=== PATIENT | female | born 1965 | race Caucasian/White ===

== ENCOUNTER → 2020-11-04 17:02 | Outpatient (CLI) | payer OTHER, SELFPAY ==
--- NOTE | ~2020-11-04 | MM_ITS ---
EXAMINATION: MM screening [facility] BI w anu HISTORY: Screening mammogram TECHNIQUE: Craniocaudal and mediolateral oblique 3-D tomosynthesis images were obtained and synthetic 2-D images were generated. CAD analysis was submitted and interpreted. COMPARISON: 04/26/2019, 09/07/2018, 03/24/2018, 03/14/2018, 05/18/2017 BREAST PARENCHYMAL COMPOSITION: There are scattered areas of fibroglandular density. FINDINGS: Scattered benign-appearing calcifications are present. A stable mass in the outer left [address] is considered benign given the lack of interval change. There is no evidence of suspicious mass, c alcification, or architectural distortion to suggest malignancy in either breast. There has been no s uspicious interval change. IMPRESSION: 1. No mammographic evidence of malignancy. 2. Recommend routine screening mammography in one year. BI-RADS Category 2: Benign finding(s). Reviewed, dictated and finalized at location A. T CLERK
== END ==
PROVIDERS: PCP Family Medicine; Visit Provider Family Medicine
DX: Z12.31 Encounter for screening mammogram for malignant neoplasm of breast (principal)
CPT/HCPCS: 77063; 77067

== ENCOUNTER → 2023-02-26 16:19 | Outpatient (CLI) | payer OTHER, SELFPAY ==
--- NOTE | ~2023-02-26 | MM_ITS ---
EXAMINATION: MM screening [facility] BI w anu HISTORY: Screening mammogram TECHNIQUE: Craniocaudal and mediolateral oblique 3-D tomosynthesis images were obtained and synthetic 2-D images were generated. CAD analysis was submitted and interpreted. COMPARISON: 11/04/2020, 04/26/2019, 09/07/2018, 03/14/2018 BREAST PARENCHYMAL COMPOSITION: There are scattered areas of fibroglandular density. FINDINGS: We'll cysts are noted in the breasts. No suspicious mass, calcification, or architectural d istortion are identified in either breast to suggest malignancy. There has been no suspicious interva l change. IMPRESSION: 1. No mammographic evidence of malignancy. 2. Recommend routine screening mammography in one year. BI-RADS Category 2: Benign finding(s). Reviewed, dictated and finalized at location A.
== END ==
PROVIDERS: PCP Family Medicine; Visit Provider Student in an Organized Health Care Education/Training Program
DX: Z12.31 Encounter for screening mammogram for malignant neoplasm of breast (principal)
CPT/HCPCS: 77063; 77067

== ENCOUNTER 2023-06-21 05:54 | Day surgery (SDC) | payer OTHER, SELFPAY ==
[2023-06-03 13:54] VITALS: BMI 29.9
--- NOTE | 2023-06-21 06:55 | WPDANESEPPF ---
Anes - Initial Pre Proc Eval Procedure: Operation Date: 06/21/23 07:30 Proposed Procedures p Screening Colonoscopy - Naman Blackmon MD Date/Time: 06/21/23 06:55 Surgeon: Naman Blackmon MD Pre Op Diagnosis: History of Colon Polyps Patient Data Age: 58 Gender: F Height: 1.68 m Weight: 82.8 kg Allergies Allergy/AdvReac Type Severity Reaction Status Date / Time No Known Allergies Allergy Verified 06/21/23 06:52 Home Medications Medication Instructions Recorded Confirmed Type No Home Medications 06/03/23 06/21/23 History Patient hx anesthesia problems: none Family hx anesthesia problems: none Results Review: All pre-operative results and documents have been reviewed as part of the pre-operative evaluation. [facility] Past Medical History Medical History (Updated 01/22/23 @ 08:53 by Rhiannon Nelson NP) Abnormal blood creatinine level Anxiety Cyst of right breast Depression Diverticulitis Eczema Encounter to establish care Headache History of colon polyps Kidney stones Screening mammogram, encounter for Seasonal allergies Unspecified abnormal findings in urine Surgical History Surgical History H/O arthroscopic knee surgery left meniscus H/O colonoscopy (09/09/17) H/O right breast biopsy Benign H/O tubal ligation Family History Family History (Updated 01/21/23 @ 11:39 by BLANCA Lozano) Mother Coronary arteriosclerosis Diabetes mellitus Depression Anxiety Father Acute myocardial infarction Dementia Grandparent Breast cancer Maternal grandmother / paternal grandmother H/O ovarian cancer maternal grandmother/ Paternal grandmother Sibling Depression Anxiety Son Depression Anxiety Daughter Anxiety Depression Social History Social History (Updated 01/22/23 @ 08:06 by BLANCA Lozano) Smoking status: Former smoker Smoking end date: 11/01/16 Alcohol intake: current Alcohol use details: socially Substance use: never Substance use type: does not use Lack of Transportation: No Lack of Food: Never True Current Housing: I Have Housing Concerned About Future Housing: No Difficulty Paying Gas/Electric Bills: No Difficulty Paying for Meds: No Currently Unemployed: No Education: High School Diploma/GED Difficulty w/ Childcare or Family Care: No Living arrangements: with family Occupation/Education: occupation 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 Gender identity (if verbalized by the patient): Female Sexual Orientation (if Verbalized by the Patient): Straight or Heterosexual Spiritual care concerns: No Anes - Eval Final PreProcedure Day of Procedure 06/21/23 06:55 Patient weight: overweight Heart: regular rate and rhythm Lungs: clear to auscultation Airway: Mallampati scale class II Neurological: alert and oriented Last oral intake: >/= 8 hours ASA classification: II Emergent: no Anesthetic plan: proceed Anesthesia type and monitoring: general GIVS and standard monitoring Results Review: All pre-operative results and documents have been reviewed as part of the pre-operative evaluation. Informed Consent: The patient's anesthetic plan and its attendant risks and benefits were discussed with the patient/family/POA. Questions were solicited and answers provided to the satisfaction of the patient/family/POA.
[2023-06-21 07:20] VITALS: BP 131/73; PULSE 65; RESP 16; TEMP 36.3; O2SAT 100
--- NOTE | 2023-06-21 07:24 | PM.HPGS ---
History of Present Illness History of Present Illness Consent: Risks, benefits, and alternatives have been discussed and questions answered. Patient agrees to proceed with procedure. Chief complaint: History of Colon Polyps Narrative: Magdalena Luciano is a 58 year old female with colon polyp 6 years ago Review of Systems Constitutional: Constitutional: Denies headache(s) and Denies weakness Eyes: Eyes: Denies blurry vision ENT: Reports Normal hearing present, Denies headache(s) and Denies neck pain Cardiovascular: Cardiovascular: Denies chest pain and Denies dyspnea Respiratory: Respiratory: Denies dyspnea Gastrointestinal: Gastrointestinal: Reports no additional gastrointestinal complaints Genitourinary: Genitourinary: Denies dysuria Musculoskeletal: Musculoskeletal: Denies neck pain Integumentary/Breasts: Skin/Breast: Denies dry skin Neurologic: Reports Normal hearing present, Denies headache(s) and Denies weakness Psychiatric: Psychiatric: Denies anxiety Endocrine: Endocrine: Denies change in body appearance Hematologic/Lymphatic: Hematologic/Lymphatic: Denies easy bleeding Allergic/Immunologic: Allergic/Immunologic: Denies urticaria PMFSH Past Medical History Medical History (Updated 01/22/23 @ 08:53 by Rhiannon Nelson NP) Abnormal blood creatinine level Anxiety Cyst of right breast Depression Diverticulitis Eczema Encounter to establish care Headache History of colon polyps Kidney stones Screening mammogram, encounter for Seasonal allergies Unspecified abnormal findings in urine Surgical History Surgical History H/O arthroscopic knee surgery left meniscus H/O colonoscopy (09/09/17) H/O right breast biopsy Benign H/O tubal ligation Family History Family History (Updated 01/21/23 @ 11:39 by BLANCA Lozano) Mother Coronary arteriosclerosis Diabetes mellitus Depression Anxiety Father Acute myocardial infarction Dementia Grandparent Breast cancer Maternal grandmother / paternal grandmother H/O ovarian cancer maternal grandmother/ Paternal grandmother Sibling Depression Anxiety Son Depression Anxiety Daughter Anxiety Depression Social History Social History (Updated 01/22/23 @ 08:06 by BLANCA Lozano) Smoking status: Former smoker Smoking end date: 11/01/16 Alcohol intake: current Alcohol use details: socially Substance use: never Substance use type: does not use Lack of Transportation: No Lack of Food: Never True Current Housing: I Have Housing Concerned About Future Housing: No Difficulty Paying Gas/Electric Bills: No Difficulty Paying for Meds: No Currently Unemployed: No Education: High School Diploma/GED Difficulty w/ Childcare or Family Care: No Living arrangements: with family Occupation/Education: occupation 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 Gender identity (if verbalized by the patient): Female Sexual Orientation (if Verbalized by the Patient): Straight or Heterosexual Spiritual care concerns: No Meds Home Medications and Allergies Home Medications Medication Instructions Recorded Confirmed Type No Home Medications 06/03/23 06/21/23 History Allergies Allergy/AdvReac Type Severity Reaction Status Date / Time No Known Allergies Allergy Verified 06/21/23 06:52 Vital Signs Vital Signs - 24 hr 06/21/23 07:20 Temperature 97.4 F L Pulse Rate 65 Respiratory Rate 16 Blood Pressure 131/73 Pulse Oximetry 100 Oxygen Delivery Room Air Exam Const: General: comfortable and no acute distress HENMT: Face/Nose/Sinus: Normal nares present Eyes: General: appearance normal, both eyes and all related structures Neck: Neck: no JVD Resp: Auscultation: clear to auscultation bilaterally Cardio: Rate: regular rate Rhythm: regular rhythm GI: Inspection: non-diste
[2023-06-21] MEDS: LACTATED RINGERS 1,000 ML 150 ML IV CONT (07:26)
[2023-06-21 08:11] VITALS: BP 96/53; PULSE 60; RESP 18; O2SAT 100
[2023-06-21 08:21] VITALS: BP 106/70; PULSE 68; RESP 16; O2SAT 100
[2023-06-21 08:31] VITALS: BP 102/76; PULSE 58; RESP 16; O2SAT 100
--- NOTE | 2023-06-21 12:34 | WPDANESPN ---
Anes - Prog Note Post-Op Date/Time: 06/21/23 12:34 Cardiovascular status: normal Respiratory status: normal Airway patency: baseline Mental status: baseline Post-Op hydration status: normal Vital Signs: Last Vital Signs Temp 36.3 C L 06/21/23 07:20 Pulse 58 L 06/21/23 08:31 Resp 16 06/21/23 08:31 BP 102/76 06/21/23 08:31 Pulse Ox 100 06/21/23 08:31 O2 Del Method Room Air 06/21/23 08:31 Pain Score (VAS): 0 I/O: Intake & Output 06/20/23 06/21/23 06/21/23 23:59 07:59 15:59 Intake Total 200 Balance 200 Post-procedural complaints: none Patient Feedback: Patient satisfied with anesthetic care. Other Findings: Patient vital signs back to baseline. Patient denies nausea and vomiting. Patient's pain under control. Patient OK for discharge.
== END 2023-06-21 08:49 | disposition home or self-care (01) ==
PROVIDERS: PCP Family Medicine; Visit Provider Internal Medicine Gastroenterology
PROC: 0DJD8ZZ Inspection of Lower Intestinal Tract, Via Natural or Artificial Opening Endoscopic (ICD-10-PCS; CPT 45378; principal; 2023-06-21 07:30)
DX: Z86.010 Personal history of colon polyps (principal); D12.2 Benign neoplasm of ascending colon; K64.8 Other hemorrhoids
CPT/HCPCS: 45385

== ENCOUNTER 2023-06-21 08:00 | Outpatient (NON) | payer OTHER, SELFPAY | END 2023-06-21 08:01 | disposition home or self-care (01) | PROVIDERS: PCP Family Medicine; Visit Provider Internal Medicine Gastroenterology | DX: Z86.010 Personal history of colon polyps (principal) | CPT/HCPCS: 88305 ==